=== PATIENT | male | born 1940 | race Two or more races ===

== ENCOUNTER 2022-12-07 12:03 | Inpatient (IN) | payer OTHER ==
[~2022-12-07] VITALS: Ht 165.1 cm; Wt 88.5 kg
[2022-12-07] MEDS ORDERED: SIMVASTATIN5 MG PO (12:30)
[2022-12-07] MEDS ORDERED: SINGULAIR10 MG PO (12:31)
[2022-12-07] MEDS ORDERED: LASIX40 MG PO (12:31)
[2022-12-07] MEDS ORDERED: HUMALOG100 UNIT/1 (12:31)
[2022-12-07] MEDS ORDERED: METFORMIN HCL500 MG (12:31)
[2022-12-07] MEDS ORDERED: CAMBIA50 MG (12:32)
[2022-12-07] MEDS ORDERED: GRALISE600 MG PO (12:32)
[2022-12-07] MEDS ORDERED: ATACAND32 MG PO (12:32)
[2022-12-07] MEDS ORDERED: LEVO-T88 MCG PO (12:33)
[2022-12-07] MEDS ORDERED: NITROGLYCERIN0.4 MG SL (12:34)
[2022-12-07] MEDS ORDERED: TAMS0.4C PO (12:34)
[2022-12-07] MEDS ORDERED: SYMBICORT 16010.2 GM IH (12:34)
[2022-12-07] MEDS ORDERED: ACID REDUCER20 M1 PO (12:34)
--- NOTE | 2022-12-07 12:35 | NUR ---
PACIENTE ALERTA Y ORIENTADO X3 EN AMBULANCIA QUIEN REFIERE QUE LLEVA VARIOS CHAVARRIA CON DIFICULTAD RESPIRATORIA. AL MOMENTO PACIENTE CON SP02 94% Y CANULA NASAL A 3LT. SE OBSERVAN EXTREMIDADES INFERIORES CON EDEMA. SE LE REALIZA EKG,SE MONITOREAN S/V Y SE UBICA PACIENTE EN CHEST PAIN.
--- NOTE | 2022-12-07 13:12 | NUR ---
SE RECIBE PTE EN AREA DE CHEST PAIN ALERTA Y ORIENTADO X3. SE COLOCA EN CAMA BAJA CON BARANDAS ELEVADAS. SE CONECTA A MONITOR CARDIACO Y SATUROMETRO Y CANULA A 3LT. SE CANALIZA PACIENTE EN BRAZO MARKIE X2 CON ANGIOS#20 PATENTE JACK DE EDEMA Y ENROJECIMIENTO. SE KEVEN MUESTARAS DE LABORATORIO REJI ORDEN MEDICA BAJO MEDIDAS ASEPTICAS Y SE ENVIAN A LABORATORIO. SE ADMINISTRAN MEDICAMENTO REJI ORDEN MEDICA. PERSONAL DE TERAPIA RESPIRATORIO REALIZA ABG. SE CORDINA XRAY. PTE REHUSA ANDERSON. SE MANTIENE BAJO OBSERVACION POR TRATAMIENTO.
--- NOTE | 2022-12-07 15:08 | NUR ---
SE RECIEBE PACIENTE DEL TURNO ANTERIOR ALERTA Y ORIENTADAO POR 3 EN CAMA #18 CON BARRANDAS ELEVADAS. PACIENTE CONECTADO A MONITOR CARDIACO SPO2 98% CON CANULA A 2 LITROS, BP: 144/82, P:100, RR:16. ABDOMEN BLANDO AL TACTO, ORINANDO ESPONTANEO. PACIENTE EN ESPERA DE RESULTADO DE LAB Y DE ESTUDIOS. SE MANTIENE EN OBSERVACION POR CAMBIOS. TROPONINAS SE REPITEN A LAS 5:00PM.
--- NOTE | 2022-12-07 16:31 | NUR ---
SE REPITE TROPONINA POR PROTOCOLO.
[2022-12-13] MEDS ORDERED: ATACAND32 MG PO (18:53)
[2022-12-13] MEDS ORDERED: BUMETANIDE1 MG PO (18:53)
[2022-12-13] MEDS ORDERED: SIMVASTATIN40 MG PO (18:53)
[2022-12-13] MEDS ORDERED: LEVOTHYROXINE88 MCG PO (18:53)
[2022-12-13] MEDS ORDERED: DOXAZOSIN MESYLA2 MG PO (18:53)
[2022-12-13] MEDS ORDERED: ISOSORBIDE MONO30 MG PO (18:53)
[2022-12-13] MEDS ORDERED: TOPROL XL25 M1 PO (18:53)
[2022-12-13] MEDS ORDERED: Lantus 1000 UNITS/10 SUBCUTANEO (18:53)
[2022-12-13] MEDS ORDERED: HUMALOG100 UNIT/1 SUBCUTANEO (18:53)
== END 2022-12-13 20:08 | disposition home or self-care (01) | DRG 291 ==
LOC: ER 12:03 → MEDI 17:26
PROVIDERS: ADMIT Internal Medicine; ATTEND Internal Medicine
PROC: 4A12X4Z Monitoring of Cardiac Electrical Activity, External Approach (ICD-10-PCS; principal; 2022-12-07)
PROC: B24BZZZ Ultrasonography of Heart with Aorta (ICD-10-PCS; 2022-12-07)
DX: I11.0 Hypertensive heart disease with heart failure (principal); I50.23 Acute on chronic systolic (congestive) heart failure; J44.1 Chronic obstructive pulmonary disease with (acute) exacerbation; N17.9 Acute kidney failure, unspecified; E87.6 Hypokalemia; I25.10 Atherosclerotic heart disease of native coronary artery without angina pectoris; E11.40 Type 2 diabetes mellitus with diabetic neuropathy, unspecified; Z79.4 Long term (current) use of insulin; E03.9 Hypothyroidism, unspecified; E66.8 Other obesity

== ENCOUNTER 2022-12-16 08:21 | Emergency (ER) | payer OTHER ==
[~2022-12-16] VITALS: Ht 170.2 cm; Wt 90.7 kg
[~2022-12-16 08:21] MED LIST: ACID REDUCER20 M1 PO; ATACAND32 MG PO; BUMETANIDE1 MG PO; CAMBIA50 MG; DOXAZOSIN MESYLA2 MG PO; GRALISE600 MG PO; HUMALOG100 UNIT/1; HUMALOG100 UNIT/1 SUBCUTANEO; ISOSORBIDE MONO30 MG PO; LASIX40 MG PO; LEVO-T88 MCG PO; LEVOTHYROXINE88 MCG PO; Lantus 1000 UNITS/10 SUBCUTANEO; METFORMIN HCL500 MG; NITROGLYCERIN0.4 MG SL; SIMVASTATIN40 MG PO; SIMVASTATIN5 MG PO; SINGULAIR10 MG PO; SYMBICORT 16010.2 GM IH; TAMS0.4C PO; TOPROL XL25 M1 PO
== END 2022-12-16 16:13 | disposition home or self-care (01) ==
LOC: ER 08:21
DX: E86.0 Dehydration (principal); I11.0 Hypertensive heart disease with heart failure; I50.9 Heart failure, unspecified; Z88.6 Allergy status to analgesic agent; Z88.0 Allergy status to penicillin; E11.65 Type 2 diabetes mellitus with hyperglycemia; Z97.4 Presence of external hearing-aid; Z20.822 Contact with and (suspected) exposure to COVID-19; Z87.09 Personal history of other diseases of the respiratory system
CPT/HCPCS: 36415; 70450; 71045; 72170; 82803; 93005; 94640; 96365; 96366; 99285; J1815; J1940; J7030

== ENCOUNTER 2023-01-05 12:51 | Emergency (ER) | payer OTHER ==
[~2023-01-05] VITALS: Ht 170.2 cm; Wt 98.9 kg
== END 2023-01-06 06:35 | disposition home or self-care (01) ==
LOC: ER 12:51
PROVIDERS: General Practice
DX: J44.9 Chronic obstructive pulmonary disease, unspecified (principal); R06.02 Shortness of breath; I10 Essential (primary) hypertension; Z91.148 Patient's other noncompliance with medication regimen for other reason; Z20.822 Contact with and (suspected) exposure to COVID-19; E11.9 Type 2 diabetes mellitus without complications; Z79.84 Long term (current) use of oral hypoglycemic drugs; Z88.0 Allergy status to penicillin; Z88.6 Allergy status to analgesic agent
CPT/HCPCS: 36415; 71045; 82803; 93005; 93041; 96365; 96366; 99283; J1815; J1940

== ENCOUNTER 2023-06-01 08:50 | Inpatient (IN) | payer OTHER ==
[~2023-06-01] VITALS: Ht 152.4 cm; Wt 98.9 kg
[2023-06-01] MEDS ORDERED: METFORMIN HCL500 M4 (08:57)
[2023-06-01] MEDS ORDERED: GABAPENTIN600 MG (08:57)
[2023-06-01] MEDS ORDERED: CANDESARTAN CIL32 MG (08:58)
[2023-06-01] MEDS ORDERED: TAMSULOSIN HCL0.4 MG (08:58)
[2023-06-01] MEDS ORDERED: SPIRONOLACTONE25 MG (08:58)
[2023-06-01] MEDS ORDERED: FUROSEMIDE40 MG (08:58)
[2023-06-01] MEDS ORDERED: SYNTHROID88 MCG (08:58)
[2023-06-01] MEDS ORDERED: FUROsemide 20 MG/2 ML VIAL IV ONE (09:15)
[2023-06-01 09:55] LABS: HEMATOCRIT 36.4 % (39.0-48.0); HEMOGLOBIN 12.1 g/dL (13-16.00); MEAN CELL VOLUME 100.8 fL (80.0-100.00); MEAN CORPUSCULAR HEMOGLOBIN 33.6 pg (27.00-32.0); MEAN CORPUSCULAR HGB CONC 33.4 g/dl (32.0-36.0); PLATELET COUNT 337 K/uL (150-450); RED BLOOD COUNT 3.61 M/uL (4.00-6.00); RED CELL DISTRIBUTION WIDTH 13.1 % (11.5-14.5)
[2023-06-01 10:09] LABS: CALCIUM 9.1 mg/dL (8.5-10.1); CREATININE SERUM 1.14 mg/dL (0.70-1.30); GFR 61.5; POTASSIUM 4.1 mEq/L (3.5-5.1)
[2023-06-01] MEDS ORDERED: INSULIN REGULAR, HUMAN 300 UNITS/3 ML UNITS IV ONE (10:30)
[2023-06-01 10:31] LABS: PH,URINE 7.5 (5.0-8.0); URINE APPEARANCE Clear; URINE BILIRRUBIN Negative (NEGATIVE); URINE BLOOD Negative; URINE COLOR Yellow; URINE LEUKOCYTE Negative; URINE NITRATE Negative; URINE PROTEIN 30 (NEGATIVE); URINE UROBILINOGEN 0.2 E.U./dl
[2023-06-01 10:35] LABS: URINE WBC 3.6 uL (0.0-23.2)
[2023-06-01 11:13] LABS: URINE BACTERIA 3.7 uL (0.0-1933); URINE EPITHELIAL CELLS 0.6 uL (0.0-38.8); URINE GLUCOSE >=1000 MG/DL (NEGATIVE); URINE RBC 0.2 uL (0.0-20.8)
[2023-06-01] MEDS ORDERED: CLINDAMYCIN PHOSPHATE 150 MG/ML (300mg) IV ONE (16:45)
[2023-06-01] MEDS ORDERED: DEXTROSE 50 % IN WATER 0.5 G/ML DISP.SYRIN IV PRN (21:15)
[2023-06-01] MEDS ORDERED: INSULIN LISPRO 1,000 UNIT/10 ML UNITS SUBCUTANEO PRN (21:15)
[2023-06-01] MEDS ORDERED: levoFLOXacin IN DEXTROSE 5 % 150 ML IV SCH (21:28)
[2023-06-01] MEDS ORDERED: MORPHINE SULFATE 4 MG/ML CARTRIDGE IV PRN (21:30)
[2023-06-01] MEDS ORDERED: ENALAPRILAT DIHYDRATE 2.5 MG/2 ML VIAL IV PRN (21:30)
[2023-06-01] MEDS ORDERED: ONDANSETRON HCL 4 MG in 0.9 % SODIUM CHLORIDE 50 ML IV PRN (21:30)
[2023-06-01] MEDS ORDERED: ACETAMINOPHEN 500 MG GEL..CAP PO PRN (21:30)
[2023-06-02 01:16] LABS: LDH 192 U/L (87-241); PHOSPHOKINASE CREATININE 45 U/L (39-308)
[2023-06-02 01:19] LABS: CKMB < 1.0 NG/ML (0.5-3.6)
[2023-06-02 03:48] LABS: ABG PH 7.411 (7.35-7.45); ABG PO2 85.7 mmHg (80-100); ABG pCO2 52.3 mmHg (35-45); SaO2 96.7 %
[2023-06-02 03:49] LABS: BASE EXCESS 6.4 mmol/l; BICARBONATE 32.5 mmol/l (23-25); Tco2 34.1 mmol/l; allen test SATISFACTORY; o2 21 %; puncture site RADIAL RIGHT
[2023-06-02] MEDS ORDERED: LEVOTHYROXINE SODIUM 88 MCG TABLET PO SCH (06:00)
[2023-06-02 08:07] LABS: ALBUMIN 2.7 gm/dL (3.4-5.0); ALKALINE PHOSPHATASE 55 U/L (50-136); ALT/SGPT 32 U/L (12-78); ANION GAP 10 (10.0-20.0); AST/SGOT 14 U/L (15-37); BILIRUBIN,CONJUGATED < 0.10 mg/dL (0.0-0.2); BLOOD UREA NITROGEN 16 mg/dL (7-18); BUN CREA RATIO 19 (7.0-25.0); CALCIUM 8.8 mg/dL (8.5-10.1); CARBON DIOXIDE 31 mEq/L (21-32); CHLORIDE 102 mmol/L (98-107); CHOLESTEROL 193 mg/dL (0-200); CREATININE SERUM 0.86 mg/dL (0.70-1.30); GFR 85.14; GLOBULINA 4.1 G/DL (2.4-3.5); GLUCOSE FASTING 102 mg/dL (65-100); HDL 64 mg/dl (40-60); LDL 101 mg/dl (0-130); OSMOLALITY SERUM 279 MOSM/KG (275-295); POTASSIUM 3.84 mEq/L (3.5-5.1); SODIUM 139 mmol/L (136-145); TOTAL PROTEIN 6.8 gm/dL (6.4-8.2); TRIGLYCERIDES 138 mg/dL (0-150); VLDL 27 (0-39)
[2023-06-02 08:09] LABS: C-REACTIVE PROTEIN 9.91 MG/DL (0.00-0.29)
[2023-06-02 08:46] LABS: PH,URINE 8.5 (5.0-8.0); URINE APPEARANCE Clear; URINE BILIRRUBIN Negative (NEGATIVE); URINE BLOOD Negative; URINE COLOR Yellow; URINE LEUKOCYTE Negative; URINE NITRATE Negative
[2023-06-02 08:48] LABS: URINE BACTERIA 11.3 uL (0.0-1933); URINE WBC 3.3 uL (0.0-23.2)
[2023-06-02] MEDS ORDERED: GABAPENTIN 600 MG TABLET PO SCH (09:00)
[2023-06-02] MEDS ORDERED: SPIRONOLACTONE 25 MG TABLET PO SCH (09:00)
[2023-06-02] MEDS ORDERED: FAMOTIDINE/PF 20 MG in 0.9 % SODIUM CHLORIDE 8 ML IV PUSH SCH (09:00)
[2023-06-02] MEDS ORDERED: CANDESARTAN CILEXETIL 32 MG TABLET PO SCH (09:00)
[2023-06-02] MEDS ORDERED: FUROsemide 40 MG/4 ML VIAL IV SCH (09:00)
[2023-06-02] MEDS ORDERED: TAMSULOSIN HCL 0.4 MG CAP PO SCH (09:00)
[2023-06-02] MEDS ORDERED: ENOXAPARIN SODIUM 40 MG/0.4 ML SYRINGE SUBCUTANEO SCH (09:00)
[2023-06-02 09:04] LABS: MEAN CELL VOLUME 100.1 fL (80.0-100.00); MEAN CORPUSCULAR HEMOGLOBIN 33.5 pg (27.00-32.0); MEAN CORPUSCULAR HGB CONC 33.5 g/dl (32.0-36.0); PLATELET COUNT 313 K/uL (150-450); RED BLOOD COUNT 3.59 M/uL (4.00-6.00); RED CELL DISTRIBUTION WIDTH 13.2 % (11.5-14.5)
[2023-06-02 09:06] LABS: URINE GLUCOSE 100 MG/DL (NEGATIVE); URINE PROTEIN 100 (NEGATIVE); URINE RBC 1.2 uL (0.0-20.8)
[2023-06-02 09:31] LABS: INR 1.02; PARTIAL THROMBOPLASTIN TIME 29.6 SECONDS (22.0-34.0); PROTHROMBIN TIME 10.7 SECONDS (9.0-11.5)
[2023-06-02] MEDS ORDERED: ENALAPRILAT DIHYDRATE 1.25 MG/ML VIAL IV PRN (11:30)
[2023-06-02 13:19] LABS: CKMB 1.1 NG/ML (0.5-3.6)
[2023-06-02] MEDS ORDERED: INSULIN GLARGINE,HUM.REC.ANLOG 1,000 UNITS/10 ML UNITS SUBCUTANEO SCH (21:00)
[2023-06-02 22:47] LABS: LDH 197 U/L (87-241); PHOSPHOKINASE CREATININE 62 U/L (39-308)
[2023-06-02 22:48] LABS: CKMB < 1.0 NG/ML (0.5-3.6)
[2023-06-03] MEDS ORDERED: METOPROLOL SUCCINATE 25 MG TAB.SR.24H PO SCH (09:00)
[2023-06-03] MEDS ORDERED: INSULIN GLARGINE,HUM.REC.ANLOG 1,000 UNITS/10 ML UNITS SUBCUTANEO SCH (09:00)
[2023-06-03] MEDS ORDERED: LACTOBACILLUS ACIDOPHILUS 1 CAP CAP PO SCH (09:00)
[2023-06-03] MEDS ORDERED: LINEZOLID IN DEXTROSE 5% 300 ML IV SCH (09:27)
[2023-06-03] MEDS ORDERED: 0.9 % SODIUM CHLORIDE 10 ML VIAL IJ ONE (16:23)
[2023-06-03] MEDS ORDERED: MONTELUKAST SODIUM 10 MG TABLET PO SCH (17:00)
[2023-06-03] MEDS ORDERED: SIMVASTATIN 40 MG TABLET PO SCH (17:00)
[2023-06-04] MEDS ORDERED: INSULIN GLARGINE,HUM.REC.ANLOG 1,000 UNITS/10 ML UNITS SUBCUTANEO SCH (09:00)
[2023-06-04 15:19] LABS: CALCIUM 8.7 mg/dL (8.5-10.1); CREATININE SERUM 1.54 mg/dL (0.70-1.30); GFR 43.46; POTASSIUM 4.27 mEq/L (3.5-5.1); TSH 1.79 uIU/mL (0.358-3.74)
[2023-06-05] MEDS ORDERED: INSULIN GLARGINE,HUM.REC.ANLOG 1,000 UNITS/10 ML UNITS SUBCUTANEO SCH (09:00)
[2023-06-06 06:05] LABS: HEMATOCRIT 33.1 % (39.0-48.0); HEMOGLOBIN 11.2 g/dL (13-16.00); MEAN CELL VOLUME 100.8 fL (80.0-100.00); MEAN CORPUSCULAR HGB CONC 33.7 g/dl (32.0-36.0); PLATELET COUNT 312 K/uL (150-450); RED BLOOD COUNT 3.28 M/uL (4.00-6.00); RED CELL DISTRIBUTION WIDTH 12.7 % (11.5-14.5)
[2023-06-06 06:50] LABS: ALBUMIN 2.7 gm/dL (3.4-5.0); BILIRUBIN TOTAL 0.49 mg/dL (0.3-1.2); CREATININE SERUM 1.32 mg/dL (0.70-1.30); GFR 51.93; GLOBULINA 3.4 G/DL (2.4-3.5); POTASSIUM 4.06 mEq/L (3.5-5.1); TOTAL PROTEIN 6.1 gm/dL (6.4-8.2)
[2023-06-06 07:07] LABS: ERYTHROCYTE SEDIMENTATION RATE 73 mm/hr
[2023-06-06 07:18] LABS: C-REACTIVE PROTEIN 4.6 MG/DL (0.00-0.29)
[2023-06-06] MEDS ORDERED: DIPHENHYDRAMINE HCL 25 MG CAPSULE PO PRN (08:00)
[2023-06-06] MEDS ORDERED: INSULIN LISPRO 1,000 UNIT/10 ML UNITS SUBCUTANEO SCH ×2 (08:00→12:00)
[2023-06-06] MEDS ORDERED: AZTREONAM 1,000 MG VIAL IV SCH (17:00)
[2023-06-06] MEDS ORDERED: CLINDAMYCIN PHOSPHATE 900 MG in 0.9 % SODIUM CHLORIDE 100 ML IV SCH (17:00)
[2023-06-07] MEDS ORDERED: FAMOtidine 20 MG TABLET PO SCH (09:00)
[2023-06-07] MEDS ORDERED: INSULIN LISPRO 1,000 UNIT/10 ML UNITS SUBCUTANEO SCH (12:00)
[2023-06-08] MEDS ORDERED: INSULIN LISPRO 1,000 UNIT/10 ML UNITS SUBCUTANEO SCH ×2 (08:00→12:00)
[2023-06-08] MEDS ORDERED: CETIRIZINE HCL 5MG/5ML BLIST.PACK PO STA (11:09)
[2023-06-08] MEDS ORDERED: LINEZOLID 600 MG TABLET PO SCH (21:00)
[2023-06-09 06:42] LABS: HEMATOCRIT 32.8 % (39.0-48.0); HEMOGLOBIN 10.9 g/dL (13-16.00); MEAN CELL VOLUME 98.8 fL (80.0-100.00); MEAN CORPUSCULAR HGB CONC 33.4 g/dl (32.0-36.0); PLATELET COUNT 321 K/uL (150-450); RED BLOOD COUNT 3.32 M/uL (4.00-6.00); RED CELL DISTRIBUTION WIDTH 12.7 % (11.5-14.5)
[2023-06-09 07:33] LABS: ALBUMIN 2.6 gm/dL (3.4-5.0); BILIRUBIN TOTAL 0.4 mg/dL (0.3-1.2); CALCIUM 8.9 mg/dL (8.5-10.1); CREATININE SERUM 1.07 mg/dL (0.70-1.30); GFR 66.16; GLOBULINA 3.2 G/DL (2.4-3.5); POTASSIUM 3.97 mEq/L (3.5-5.1); TOTAL PROTEIN 5.8 gm/dL (6.4-8.2)
[2023-06-09 07:39] LABS: C-REACTIVE PROTEIN 1.82 MG/DL (0.00-0.29)
[2023-06-09 08:24] LABS: ERYTHROCYTE SEDIMENTATION RATE 77 mm/hr
[2023-06-09] MEDS ORDERED: CETIRIZINE HCL 5MG/5ML BLIST.PACK PO SCH (09:00)
[2023-06-09] MEDS ORDERED: CETIRIZINE HCL 5 MG/5 ML ML PO SCH (09:00)
[2023-06-10] MEDS ORDERED: CLINDAMYCIN PHOSPHATE 150 MG/ML (900mg) ONE (23:54)
[2023-06-10] MEDS ORDERED: SODIUM CL 0.9% 100 ML IV.SOLN IV ONE (23:54)
[2023-06-13] MEDS ORDERED: MEROPENEM 500 MG/VIAL VIAL IV SCH (12:26)
[2023-06-16 07:33] LABS: HEMATOCRIT 31.5 % (39.0-48.0); HEMOGLOBIN 10.6 g/dL (13-16.00); MEAN CELL VOLUME 101.1 fL (80.0-100.00); MEAN CORPUSCULAR HEMOGLOBIN 34.2 pg (27.00-32.0); MEAN CORPUSCULAR HGB CONC 33.8 g/dl (32.0-36.0); PLATELET COUNT 353 K/uL (150-450); RED BLOOD COUNT 3.12 M/uL (4.00-6.00); RED CELL DISTRIBUTION WIDTH 12.9 % (11.5-14.5)
[2023-06-16 07:42] LABS: ERYTHROCYTE SEDIMENTATION RATE 47 mm/hr
[2023-06-16 08:05] LABS: ALBUMIN 2.6 gm/dL (3.4-5.0); BILIRUBIN TOTAL 0.35 mg/dL (0.3-1.2); CALCIUM 8.9 mg/dL (8.5-10.1); CREATININE SERUM 0.95 mg/dL (0.70-1.30); GFR 75.9; GLOBULINA 3.3 G/DL (2.4-3.5); POTASSIUM 3.98 mEq/L (3.5-5.1); TOTAL PROTEIN 5.9 gm/dL (6.4-8.2)
[2023-06-16 08:22] LABS: C-REACTIVE PROTEIN 1.14 MG/DL (0.00-0.29)
[2023-06-18] MEDS ORDERED: INSULIN GLARGINE,HUM.REC.ANLOG 1,000 UNITS/10 ML UNITS SUBCUTANEO SCH (09:00)
[2023-06-19] MEDS ORDERED: FUROSEMIDE40 MG PO (12:19)
[2023-06-19] MEDS ORDERED: TOPROL XL25 M1 PO (12:19)
[2023-06-19] MEDS ORDERED: TAMS0.4C PO (12:19)
[2023-06-19] MEDS ORDERED: Lantus 1000 UNITS/10 SUBCUTANEO (12:19)
[2023-06-19] MEDS ORDERED: MONTELUKAST SOD10 MG PO (12:19)
[2023-06-19] MEDS ORDERED: LEVOTHYROXINE88 MCG PO (12:19)
[2023-06-19] MEDS ORDERED: NEURONTIN600 MG PO (12:19)
[2023-06-19] MEDS ORDERED: ATACAND32 MG PO (12:19)
[2023-06-19] MEDS ORDERED: SIMVASTATIN40 MG PO (12:19)
== END 2023-06-19 18:59 | disposition home or self-care (01) | DRG 638 ==
LOC: ER 08:50 → MEDJ 21:52 → SEC-K 23:08 → MEDJ 06-02 03:00
PROVIDERS: Emergency Medicine; General Practice; ADMIT Internal Medicine; ATTEND Internal Medicine
PROC: B54DZZZ Ultrasonography of Bilateral Lower Extremity Veins (ICD-10-PCS; 2023-06-01)
PROC: B246ZZZ Ultrasonography of Right and Left Heart (ICD-10-PCS; principal; 2023-06-02)
PROC: 4A12X4Z Monitoring of Cardiac Electrical Activity, External Approach (ICD-10-PCS; 2023-06-02)
PROC: BQ3DZZZ Magnetic Resonance Imaging (MRI) of Right Lower Leg (ICD-10-PCS; 2023-06-10)
PROC: 8E0ZXY6 Isolation (ICD-10-PCS; 2023-06-11)
DX: E11.621 Type 2 diabetes mellitus with foot ulcer (principal); L03.115 Cellulitis of right lower limb; L97.818 Non-pressure chronic ulcer of other part of right lower leg with other specified severity; Z79.4 Long term (current) use of insulin; E11.65 Type 2 diabetes mellitus with hyperglycemia; E11.628 Type 2 diabetes mellitus with other skin complications; E66.8 Other obesity; E03.8 Other specified hypothyroidism; I11.0 Hypertensive heart disease with heart failure; I50.9 Heart failure, unspecified; J44.9 Chronic obstructive pulmonary disease, unspecified; E78.49 Other hyperlipidemia; K21.9 Gastro-esophageal reflux disease without esophagitis; Z88.0 Allergy status to penicillin; I73.9 Peripheral vascular disease, unspecified
CPT/HCPCS: 73221